=== PATIENT | female | born 2000 | race Caucasian/White ===

== ENCOUNTER 2021-04-04 11:43 | Emergency (ER) | payer BC ==
[2021-04-04 13:57] LABS: HEMOGLOBIN 13.5 gm/dl (12.3-15.3); RED BLOOD COUNT 4.62 M/UL (4.00-5.10); WHITE BLOOD COUNT 6.2 K/UL (4.5-11.0)
[2021-04-04 14:21] LABS: BUN/CREATININE RATIO 17 (0-10)
[2021-04-04] MEDS ORDERED: ZOFRAN ODT 4 MG4 MG PO (17:25)
== END 2021-04-04 17:48 | disposition home or self-care (01) ==
LOC: ER1 11:43
PROVIDERS: Family Medicine
DX: R55 Syncope and collapse (principal); R09.81 Nasal congestion; R11.0 Nausea; Z88.0 Allergy status to penicillin; Z20.822 Contact with and (suspected) exposure to COVID-19
CPT/HCPCS: 80053; 81001; 84703; 85025; 87086; 93005; 96374; 99283; J2405; J7030; U0003